=== PATIENT | male | born 1995 | race Caucasian/White ===

== ENCOUNTER 2019-07-17 16:12 | Emergency (ER) | payer SELFPAY ==
[~2019-07-17] VITALS: Ht 193 cm; Wt 67.3 kg
[2019-07-17 16:35] VITALS: BP 136/76; Ht 193 cm; Wt 67.3 kg
[2019-07-17] MEDS ORDERED: BACLOFEN20 M1 PO (17:00)
[2019-07-17] MEDS ORDERED: VOLTAREN75 MG PO (17:00)
== END 2019-07-17 18:40 | disposition home or self-care (01) ==
LOC: D.ER 16:12
DX: M54.6 Pain in thoracic spine (principal); M79.10 Myalgia, unspecified site; J45.909 Unspecified asthma, uncomplicated; Z72.0 Tobacco use; M79.602 Pain in left arm; M79.605 Pain in left leg